=== PATIENT | female | born 1965 | race Hispanic/Latino ===

== ENCOUNTER 2016-06-26 10:26 | Emergency (ER) | payer SELFPAY ==
[2016-06-26 11:49] VITALS: RESP 18; TEMP 98.7
--- NOTE | 2016-06-26 12:40 | C.PDOC ---
Time Seen by Provider: 06/26/16 11:26 Chief Complaint (Nursing): Lower Extremity Problem/Injury Past Medical History Vital Signs: Last Vital Signs Temp 98.7 F 06/26/16 11:00 Pulse 85 06/26/16 11:00 Resp 18 06/26/16 11:00 BP 124/79 06/26/16 11:00 Pulse Ox 97 06/26/16 11:00 - Social History Hx Alcohol Use: No Hx Substance Use: No - Immunization History Hx Tetanus Toxoid Vaccination: Yes Hx Influenza Vaccination: Yes Hx Pneumococcal Vaccination: Yes ED Course And Treatment O2 Sat by Pulse Oximetry: 97 Disposition - Disposition Referrals: [facility] at [facility] [Outside] Nghia Aguilar DPM [Staff Provider] - Disposition: HOME/ ROUTINE Disposition Time: 12:38 Condition: STABLE Additional Instructions: Follow up with PMD within 1-2 days. Return to ED if feel worse. Prescriptions: Ibuprofen [Motrin Tab] 600 mg PO Q8 #30 tab Instructions: Foot Contusion (ED) - Clinical Impression Clinical Impression: Toe contusion
--- NOTE | 2016-06-26 12:41 | C.PDOC ---
History Of Present Illness A 51 year old female presents to the emergency room with complaints of left big toe pain for 1 month. Patient reports that something fell onto her left foot 1 month ago. Patient notes pain, swelling, and discoloration to the big toe. Patient denies any other injury/trauma, any other pain, numbness, weakness, any sensory changes, or any other complaints. Time Seen by Provider: 06/26/16 11:26 Chief Complaint (Nursing): Lower Extremity Problem/Injury History Per: Patient History/Exam Limitations: no limitations Onset/Duration Of Symptoms: Other (1 month) Current Symptoms Are (Timing): Still Present Severity: Mild Recent travel outside of the [place]: No - Ankle/Foot Description Of Injury: Struck With Object Past Medical History Reviewed: Historical Data, Nursing Documentation, Vital Signs Vital Signs: Last Vital Signs Temp 98.7 F 06/26/16 11:00 Pulse 75 06/26/16 13:30 Resp 18 06/26/16 13:30 BP 132/75 06/26/16 13:30 Pulse Ox 97 06/27/16 16:07 Family History: States: No Known Family Hx - Social History Hx Alcohol Use: No Hx Substance Use: No - Immunization History Hx Tetanus Toxoid Vaccination: Yes Hx Influenza Vaccination: Yes Hx Pneumococcal Vaccination: Yes Review Of Systems Except As Marked, All Systems Reviewed And Found Negative. Constitutional: Negative for: Fever, Chills Gastrointestinal: Negative for: Nausea, Vomiting, Diarrhea Musculoskeletal: Positive for: Other (Left big toe pain, swelling, and discoloration) Neurological: Negative for: Weakness, Numbness Physical Exam - Physical Exam Appears: Well, Non-toxic, No Acute Distress Skin: Normal Color, Warm, Dry, No Rash Head: Atraumatic, Normacephalic Extremity: Normal ROM, Tenderness (Left great toe - tender to palpation and when you press against the nail.), Other (Grayish discoloration of the left great toe nail. No discharge or signs of infection. ) Pulses: Left Dorsalis Pedis: Normal, Right Dorsalis Pedis: Normal Neurological/Psych: Oriented x3, Normal Speech, Normal Cognition, Normal Motor, Normal Sensation Gait: Steady ED Course And Treatment O2 Sat by Pulse Oximetry: 97 - Other Rad Left Foot X-ray X-Ray: Interpreted by Me, Viewed By Me Interpretation: No acute fractures or dislocations. Progress Note: X-ray was negative. Patient given Motrin. On reevluation, patient feels better and can ambulate with no difficulty. Patient instructed to follow up with clinic and technical support assistant. Disposition - Disposition Referrals: [facility] at [facility] [Outside] Nghia Aguilar DPM [Staff Provider] - Disposition: HOME/ ROUTINE Disposition Time: 12:42 Condition: STABLE Additional Instructions: Follow up with PMD within 1-2 days. Return to ED if feel worse. Prescriptions: Ibuprofen [Motrin Tab] 600 mg PO Q8 #30 tab Instructions: Foot Contusion (ED) Forms: Work Excuse - Clinical Impression Clinical Impression: Toe contusion - Scribe Statement The provider has reviewed the documentation as recorded by the Scribsergio Lyon All medical record entries made by the Scribe were at my direction and personally dictated by me. I have reviewed the chart and agree that the record accurately reflects my personal performance of the history, physical exam, medical decision making, and the department course for this patient. I have also personally directed, reviewed, and agree with the discharge instructions and disposition.
[2016-06-26 13:50] VITALS: BP 132/75; PULSE 75
--- NOTE | 2016-06-26 15:34 | RAD ---
PROCEDURE: Radiographs of the left great toe. TECHNIQUE:: AP radiograph of the left foot, with oblique and lateral view of the left great toe. COMPARISON: None. FINDINGS: BONES: No fracture noted. Few tiny subarticular cyst 2nd proximal interphalangeal joint and lateral 1st interphalangeal joint are suggested. No periosteal reaction noted JOINTS: First metatarsal-phalangeal joint space narrowing proximal interphalangeal joint space narrowing consistent with mild degenerative changes SOFT TISSUES: Mild great toe soft tissue swelling and hyperdensity suggested - nonspecific OTHER FINDINGS: None. IMPRESSION: No fracture or dislocation. Tiny subarticular cyst. No gross erosions. Mild degenerative joint space narrowing
[2016-06-27 16:07] VITALS: O2SAT 97
== END 2016-06-26 13:50 | disposition home or self-care (01) ==
LOC: SUPCPDRO 10:26 → C.ER 10:26
DX: S90.112A Contusion of left great toe without damage to nail, initial encounter (principal); W22.8XXA Striking against or struck by other objects, initial encounter

== ENCOUNTER 2017-07-24 10:05 | Emergency (ER) | payer OTHER ==
[2017-07-24 10:19] VITALS: RESP 20
[2017-07-24 10:26] VITALS: BMI 25.4
--- NOTE | 2017-07-24 11:34 | C.PDOC ---
History Of Present Illness 52 y/o female presents to the ED for evaluation of twisting injury of right knee , sustained 2 days ago. Patient states she slipped and fell, causing the right knee to twist back. She denies prior injury to the area. Patient reports increasing pain with weight bearing on the right leg. Denies any numbness, weakness, deformity, skin changes, or sensorineural deficits. Time Seen by Provider: 07/24/17 11:11 Chief Complaint (Nursing): Lower Extremity Problem/Injury History Per: Patient History/Exam Limitations: no limitations Onset/Duration Of Symptoms: Days Current Symptoms Are (Timing): Still Present Past Medical History Reviewed: Historical Data, Nursing Documentation, Vital Signs Vital Signs: Last Vital Signs Temp 98.9 F 07/24/17 11:52 Pulse 95 H 07/24/17 11:52 Resp 20 07/24/17 11:52 BP 112/72 07/24/17 11:52 Pulse Ox 99 07/24/17 11:56 - Medical History PMH: HTN, Hypercholesterolemia Other Surgeries: Right forearm surgery Family History: States: No Known Family Hx - Social History Hx Alcohol Use: No Hx Substance Use: No - Immunization History Hx Tetanus Toxoid Vaccination: Yes Hx Influenza Vaccination: Yes Hx Pneumococcal Vaccination: Yes Review Of Systems Musculoskeletal: Positive for: Leg Pain (right knee pain). Negative for: Other (swelling, deformity, or sensorineural deficits) Skin: Negative for: Lesions Neurological: Negative for: Weakness, Numbness Physical Exam - Physical Exam Appears: Non-toxic, No Acute Distress Skin: Normal Color, Warm, Dry Head: Normacephalic Eye(s): bilateral: Normal Inspection Extremity: Tenderness (over the lateral aspect of right knee and proximal fibula , with no sensorineural deficits or skin changes), No Deformity, No Swelling Pulses: Left Dorsalis Pedis: Normal, Right Dorsalis Pedis: Normal Neurological/Psych: Oriented x3 ED Course And Treatment O2 Sat by Pulse Oximetry: 99 (RA) Pulse Ox Interpretation: Normal - Other Rad rIGHT KNEE AND TIB/FIB X-Ray: Interpreted by Me, Viewed By Me Interpretation: (-) acute fx or dislocation Progress Note: X-rays of the right knee and tib/fib ordered and reviewed. On re -eval, pt is afebrile, hemodynamicalys table. Non-toxic. Ambulatory in ED. head: AT/NC. neck: SUpple, (-) midline tenderness. RLE: Right knee mild tenderness. no defomrity, n oedmea. FAROM, no neurovascular deficits. Imaging review and appears normal. Robin wrap applied to Right knee. Pt has clinical findings c/w knee sprain. Advised. ref. to f/u with Ortho in 2 -3 days for re- eval. return if any new changes. Disposition Counseled Patient/Family Regarding: Studies Performed, Diagnosis, Need For Followup, Rx Given - Disposition Referrals: [facility] at [facility] [Outside] Aaron Sesay MD [Staff Provider] - Disposition: HOME/ ROUTINE Disposition Time: 11:30 Condition: STABLE Additional Instructions: RICE-ERST,ICE,COMPRESSION,ELEVATION TAKE PAIN MEDICATION PRESCRIBED LIGHT DUTY DU TO RIGHT LEG FOLLOW UP WITH ORTHOPEDIST IN 2-3 DAYS FOR RE-EVALUATION. RETURN IF ANY NEW CHANGES. Prescriptions: traMADol [Ultram] 50 mg PO TID #10 tab Instructions: Knee Sprain (DC) Forms: [email or web address] (Croatian), Work Excuse - Clinical Impression Clinical Impression: Knee sprain - PA / DIGITAL EXPERIENCE MANAGER / Resident Statement MD/DO has reviewed & agrees with the documentation as recorded. - Scribe Statement The provider has reviewed the documentation as recorded by the Scribe (Florence Crooks) All medical record entries made by the Scribe were at my direction and personally dictated by me. I have reviewed the chart and agree that the record accurately reflects my personal performance of the history, physical exam, medical decision making, and the department course for this patient. I have also personally directed, reviewed, and agree with the discharge instructions and disposition.
[2017-07-24 11:53] VITALS: BP 112/72; PULSE 95; TEMP 98.9
[2017-07-24 11:56] VITALS: O2SAT 99
--- NOTE | 2017-07-24 12:25 | RAD ---
PROCEDURE: Radiographs of the right tibia and fibula. HISTORY: injury COMPARISON: None available. TECHNIQUE: Frontal and lateral views obtained. FINDINGS: BONES: No fracture or destructive lesion. JOINT SPACES: Unremarkable. OTHER FINDINGS: None. IMPRESSION: Unremarkable radiographs of the right tibia and fibula.
--- NOTE | 2017-07-24 12:26 | RAD ---
PROCEDURE: Right Knee Radiographs. HISTORY: injury COMPARISON: None. FINDINGS: BONES: Normal. No fracture. JOINTS: Normal. No osteoarthritis. JOINT EFFUSION: Trace joint effusion. OTHER FINDINGS: None. IMPRESSION: No acute fracture. Trace joint effusion, nonspecific.
== END 2017-07-24 12:26 | disposition home or self-care (01) ==
LOC: C.ER 10:05
DX: S83.91XA Sprain of unspecified site of right knee, initial encounter (principal); W01.0XXA Fall on same level from slipping, tripping and stumbling without subsequent striking against object, initial encounter